=== PATIENT | male | born 1965 | race Native Hawaiian/Other Pacific Islander ===

== ENCOUNTER 2022-05-07 18:25 | Emergency (ER) | payer BC ==
[~2022-05-07] VITALS: Ht 180.3 cm; Wt 97.1 kg
[2022-05-07 18:30] VITALS: TEMP 98
[2022-05-07 21:25] VITALS: BP 136/88
== END 2022-05-07 21:25 | disposition home or self-care (01) ==
LOC: ED 18:25
PROC: 2W3RX1Z Immobilization of Left Lower Leg using Splint (ICD-10-PCS; principal; 2022-05-07)
DX: S82.445A Nondisplaced spiral fracture of shaft of left fibula, initial encounter for closed fracture (principal); X50.1XXA Overexertion from prolonged static or awkward postures, initial encounter; Y93.01 Activity, walking, marching and hiking; Y92.096 Garden or yard of other non-institutional residence as the place of occurrence of the external cause
CPT/HCPCS: 99283

== ENCOUNTER 2023-03-24 09:12 | Outpatient (CLI) | payer BC | END 2023-03-24 19:08 | disposition home or self-care (01) | LOC: RAD 09:12 | PROVIDERS: ATTEND Orthopaedic Surgery | DX: M54.59 Other low back pain (principal) ==